=== PATIENT | male | born 1960 | race American Indian/Alaskan Native ===

== ENCOUNTER 2017-09-26 23:19 | Emergency (ER) | payer MEDICAID ==
[2017-09-27 00:11] VITALS: BP 134/74
[2017-09-27] MEDS ORDERED: NORCO 5/325 PO ONE (01:32)
[2017-09-27] MEDS ORDERED: NORCO 5/325 ONE (01:33)
--- NOTE | 2017-09-27 01:42 | XRay Report ---
FINAL REPORT EXAM: XR ANKLE 3+V LT HISTORY: left ankle injury COMPARISON: None available. FINDINGS: Three views of left ankle obtained. Trimalleolar fracture. Transverse fracture of the medial malleolus, oblique fracture of the distal fibula and oblique fracture through the distal and posterior margin of the tibia. There is medial subluxation of the distal tibia relative to the talus and lateral angulation at the distal fibular fracture site. IMPRESSION: Trimalleolar fracture with medial subluxation the distal tibia relative to the talus.
--- NOTE | 2017-09-27 03:03 | Emergency Department Report ---
HPI - General Chief Complaint: Extremity Injury, Lower Time Seen by Provider: 09/27/17 02:34 - HPI HPI: This is a 57-year-old male presents to ED complaining of left ankle and foot pain times today. Patient states. He was running and accidentally twisted his ankle. Patient denies falling, loss of consciousness or any injuries to the head. Patient states pain and swelling began shortly after the incident. ED Past Medical Hx - Past Medical History Hx Diabetes: Yes - Surgical History Past Surgical History?: No - Social History Smoking Status: Never Smoker Substance Use Type: None - Medications Home Medications: Home Medications Medication Instructions Recorded Confirmed Last Taken Type Cyclobenzaprine [Flexeril] 10 mg PO QHS PRN #24 tablet 09/27/17 Unknown Rx Ibuprofen [Motrin] 800 mg PO Q8HR PRN #30 tablet 09/27/17 Unknown Rx oxyCODONE /ACETAMINOPHEN [Percocet 1 tab PO Q6HR PRN #12 tablet 09/27/17 Unknown Rx 5/325] ED Review of Systems ROS: Stated complaint: ANKLE PAIN Other details as noted in HPI Constitutional: denies: chills, fever Eyes: denies: eye pain, eye discharge, vision change ENT: denies: ear pain, throat pain Respiratory: denies: cough, shortness of breath, wheezing Cardiovascular: denies: chest pain, palpitations Endocrine: no symptoms reported Gastrointestinal: denies: abdominal pain, nausea, diarrhea Genitourinary: denies: urgency, dysuria Musculoskeletal: denies: back pain, joint swelling, arthralgia Skin: denies: rash, lesions Neurological: denies: headache, weakness, paresthesias Psychiatric: denies: anxiety, depression Hematological/Lymphatic: denies: easy bleeding, easy bruising Physical Exam - Physical Exam Vital Signs: Vital Signs 09/27/17 09/27/17 00:05 00:52 Temperature 98.4 F 98.4 F Pulse Rate 84 84 Respiratory 18 Rate Blood Pressure 134/74 134/74 O2 Sat by Pulse 97 98 Oximetry Physical Exam: GENERAL: Alert and oriented x3, no apparent distress, Normal Gait, atraumatic. HEAD: Head is normocephalic and a-traumatic. NECK: Supple. Non edematous, No lymphadenopathy or thyromegaly. No C-spine tenderness, full range of motion LUNGS: Symetrical with respiration, No wheezing, no rales or crackles, CTAB. HEART: S1, S2 present, regular rate and rhythm without murmur, no rubs, no gallops. Non tender to palpation EXTREMITIES/MUSCULOSKELETAL: No cyanosis, clubbing, rash, lesions or edema. Full ROM bilaterally. pedal Pulses 2+ bilaterally. LE 5+ strength bilaterally , mild tissue swelling to the left ankle, tender to palpation. No loss of sensation. No lesions no abrasions or ecchymosis NEUROLOGIC: The patient is cooperative with no focal neurologic deficits. SKIN: Warm and dry, No lesions, No ulceration or induration present. ED Course Vital Signs 09/27/17 09/27/17 00:05 00:52 Temperature 98.4 F 98.4 F Pulse Rate 84 84 Respiratory 18 Rate Blood Pressure 134/74 134/74 O2 Sat by Pulse 97 98 Oximetry ED Medical Decision Making - Radiology Data Radiology results: report reviewed, image reviewed INAL REPORT EXAM: XR ANKLE 3+V LT HISTORY: left ankle injury COMPARISON: None available. FINDINGS: Three views of left ankle obtained. Trimalleolar fracture. Transverse fracture of the medial malleolus, oblique fracture of the distal fibula and oblique fracture through the distal and posterior margin of the tibia. There is medial subluxation of the distal tibia relative to the talus and lateral angulation at the distal fibular fracture site. IMPRESSION: Trimalleolar fracture with medial subluxation the distal tibia relative to the talus. Transcribed By: PRINCESS Dictated By: CARLA FIGUEROA MD Electronically Authenticated By: CARLA FIGUEROA MD Signed Date/Time: 09/27/17 0137 - Medical Decision Making Patient [id number] male presents with fracture of the tibial bone ED course: Patient receiv one tablet of [place] for pain in the ed. X-rays of the foot and ankle obtained, see report above Discussed x-ray findings with the patient. Patient was placed in a Black OCL splint and given crutches upon discharge I discussed with the patient to follow up with orthopedic doctor within 2-3 days Vital signs are stable patient is in no acute distress. Patient has no neuro deficits, breath sounds are sure she is given states will follow-up Critical care attestation.: If time is entered above; I have spent that time in minutes in the direct care of this critically ill patient, excluding procedure time. ED Disposition Clinical Impression: Ankle fracture Closed tibia fracture Qualifiers: Encounter type: initial encounter Fracture alignment: nondisplaced Disposition: TO HOME OR SELFCARE Is pt being admited?: No Does the pt Need Aspirin: No Condition: Stable Instructions: Ankle Fracture (ED), Leg Fracture (ED), RICE Therapy (ED) Additional Instructions: Make sure to follow up with the primary care physician as discussed. Take all your medications as you've been prescribed. If you have any worsening symptoms or develop new symptoms please return to ED immediately. Prescriptions: Cyclobenzaprine [Flexeril] 10 mg PO QHS PRN #24 tablet PRN Reason: Muscle Spasm Ibuprofen [Motrin] 800 mg PO Q8HR PRN #30 tablet PRN Reason: Pain oxyCODONE /ACETAMINOPHEN [Percocet 5/325] 1 tab PO Q6HR PRN #12 tablet PRN Reason: Pain Referrals: KELLY LEMON MD [Primary Care Provider] - 3-5 Days MINA NATHAN MD [Staff Physician] - 3-5 Days Forms: Work/School Release Form Time of Disposition: 04:02
[2017-09-27] MEDS ORDERED: FLEXERIL ONE (03:14)
[2017-09-27] MEDS ORDERED: TORADOL ONE (03:14)
[2017-09-27] MEDS ORDERED: FLEXERIL PO ONE (03:15)
[2017-09-27] MEDS ORDERED: TORADOL IM ONE (03:15)
== END 2017-09-27 04:35 | disposition home or self-care (01) ==
LOC: ED 23:19
DX: S82.292A Other fracture of shaft of left tibia, initial encounter for closed fracture (principal); E11.9 Type 2 diabetes mellitus without complications; W22.8XXA Striking against or struck by other objects, initial encounter; Y93.89 Activity, other specified; Y92.89 Other specified places as the place of occurrence of the external cause; Y99.8 Other external cause status
CPT/HCPCS: 29515; 73610; 96372; 99284; J1885

== ENCOUNTER 2017-10-03 00:09 | Emergency (ER) | payer MEDICAID ==
[2017-10-03 00:15] VITALS: BP 141/77
[2017-10-03] MEDS ORDERED: MOTRIN PO ONE (07:53)
--- NOTE | 2017-10-03 07:58 | Emergency Department Report ---
ED Lower Extremity HPI - General Chief Complaint: Extremity Injury, Lower Stated Complaint: LEFT ANKLE PAIN Time Seen by Provider: 10/03/17 07:05 Source: patient Mode of arrival: Wheelchair Limitations: Physical Limitation - History of Present Illness Initial Comments: This is a 57-year-old male nontoxic, well nourished in appearance, no acute signs of distress presents to the ED with c/o of left ankle pain. Patient stated that he was diagnosed with a ankle fracture on 09/27/2017 and received a splint and stated that splint has been itching him and burning so patient removed it today. Patient denies any numbness, tingling, decreased range of motion, fever, chills, nausea, vomiting, headache or stiff neck. She denies any chest pain or shortness of breath. Patient denies any new trauma. She stated that he follows Dr. Peck orthopedic doctor and stated that surgery scheduled. Patient denies any drug allergies. MD Complaint: ankle injury Injury: Ankle: Left Severity: mild Severity scale (0 -10): 8 Improves With: immobilization Worsens With: movement, palpation Associated Symptoms: swelling, unable to bear weight. denies: snap/pop sensation, numbness, tingling, able to partially bear weight, ambulatory - Related Data Home Medications Medication Instructions Recorded Confirmed Last Taken Aspirin [Lo-Dose Aspirin EC] 81 mg PO DAILY 10/02/17 10/02/17 Unknown Gabapentin [Neurontin] 300 mg PO QHS 10/02/17 10/02/17 Unknown HYDROcodone/APAP 5-325 [[place] 1 each PO Q6HR PRN 10/02/17 10/02/17 Unknown 5/325] Ibuprofen [Motrin] 800 mg PO Q8HR PRN 10/02/17 10/02/17 Unknown Insulin NPH/Regular [Novolin 70/30] 40 unit SUB-Q BID 10/02/17 10/02/17 Unknown Tamsulosin [Flomax] 0.4 mg PO QDAY 10/02/17 10/02/17 Unknown Previous Rx's Medication Instructions Recorded Last Taken Type Cyclobenzaprine [Flexeril] 10 mg PO QHS PRN #24 tablet 09/27/17 Unknown Rx oxyCODONE /ACETAMINOPHEN [Percocet 1 tab PO Q6HR PRN #12 tablet 09/27/17 Unknown Rx 5/325] Ibuprofen [Motrin] 600 mg PO Q8H PRN #30 tablet 10/03/17 Unknown Rx Allergies Allergy/AdvReac Type Severity Reaction Status Date / Time No Known Allergies Allergy Verified 09/27/17 01:48 ED Review of Systems ROS: Stated complaint: LEFT ANKLE PAIN Other details as noted in HPI Constitutional: denies: chills, fever Eyes: denies: eye pain, eye discharge, vision change ENT: denies: ear pain, throat pain Respiratory: denies: cough, shortness of breath, wheezing Cardiovascular: denies: chest pain, palpitations Endocrine: no symptoms reported Gastrointestinal: denies: abdominal pain, nausea, diarrhea Genitourinary: denies: urgency, dysuria Musculoskeletal: arthralgia. denies: back pain, joint swelling Skin: denies: rash, lesions Neurological: denies: headache, weakness, paresthesias Psychiatric: denies: anxiety, depression Hematological/Lymphatic: denies: easy bleeding, easy bruising ED Past Medical Hx - Past Medical History Previous Medical History?: Yes Hx Hypertension: Yes (OFF MEDS X 10 YRS) Hx Heart Attack/AMI: Yes (? SILENT [place] ( NO FOLLOW UP)) Hx Diabetes: Yes Hx HIV: No - Surgical History Past Surgical History?: No - Social History Smoking Status: Never Smoker Substance Use Type: None - Medications Home Medications: Home Medications Medication Instructions Recorded Confirmed Last Taken Type Cyclobenzaprine [Flexeril] 10 mg PO QHS PRN #24 tablet 09/27/17 10/02/17 Unknown Rx oxyCODONE /ACETAMINOPHEN [Percocet 1 tab PO Q6HR PRN #12 tablet 09/27/17 Unknown Rx 5/325] Aspirin [Lo-Dose Aspirin EC] 81 mg PO DAILY 10/02/17 10/02/17 Unknown History Gabapentin [Neurontin] 300 mg PO QHS 10/02/17 10/02/17 Unknown History HYDROcodone/APAP 5-325 [[place] 1 each PO Q6HR PRN 10/02/17 10/02/17 Unknown History 5/325] Ibuprofen [Motrin] 800 mg PO Q8HR PRN 10/02/17 10/02/17 Unknown History Insulin NPH/Regular [Novolin 70/30] 40 unit SUB-Q BID 10/02/17 10/02/17 Unknown History Tamsulosin [Flomax] 0.4 mg PO QDAY 10/02/17 10/02/17 Unknown History Ibuprofen [Motrin] 600 mg PO Q8H PRN #30 tablet 10/03/17 Unknown Rx ED Physical Exam - General Limitations: Physical Limitation General appearance: alert, in no apparent distress - Head Head exam: Present: atraumatic, normocephalic - Eye Eye exam: Present: normal appearance Pupils: Present: normal accommodation - ENT ENT exam: Present: normal exam, mucous membranes moist - Neck Neck exam: Present: normal inspection, full ROM. Absent: tenderness, meningismus - Respiratory Respiratory exam: Present: normal lung sounds bilaterally. Absent: respiratory distress - Cardiovascular Cardiovascular Exam: Present: regular rate, normal rhythm. Absent: systolic murmur, diastolic murmur, rubs, gallop - GI/Abdominal GI/Abdominal exam: Present: soft, normal bowel sounds - Rectal Rectal exam: Present: deferred - Extremities Exam Extremities exam: Present: normal inspection, full ROM, tenderness, normal capillary refill. Absent: pedal edema, joint swelling, calf tenderness - Expanded Lower Extremity Exam Left Hip exam: Present: normal inspection, full ROM Upper Leg exam: Present: normal inspection, full ROM Knee exam: Present: normal inspection, full ROM Lower Leg exam: Present: normal inspection, full ROM. Absent: tenderness, swelling, abrasion, laceration, ecchymosis, deformity, crepidus, dislocation, erythema, palpable cord, Nelson's sign Ankle exam: Present: normal inspection, full ROM, tenderness, swelling. Absent : abrasion, laceration, ecchymosis, deformity, crepidus, dislocation, erythema, anterior draw sign Foot/Toe exam: Present: normal inspection, full ROM Neuro vascular tendon exam: Present: no vascular compromise Gait: Positive: unable to bear weight - Back Exam Back exam: Present: normal inspection, full ROM - Neurological Exam Neurological exam: Present: alert, oriented X3, normal gait - Psychiatric Psychiatric exam: Present: normal affect, normal mood - Skin Skin exam: Present: warm, dry, intact, normal color. Absent: rash ED Course Vital Signs 10/03/17 00:14 Temperature 98.4 F Pulse Rate 80 Respiratory 16 Rate Blood Pressure 141/77 [Right] O2 Sat by Pulse 97 Oximetry - Reevaluation(s) Reevaluation #1: 10/03/17 07:56 Patient is speaking in full sentences with no signs of distress noted. Reevaluation #2: Post splint assessment: neurovasular intact; normal cap refill <2 second; normal sensation; denies decreaed sensation; normal ROM of digits. ED Lower Extremity MDM - Medical Decision Making This is a 57-year-old male that presents with trimalleolar fracture. Patient is stable and was examined by me. A OCL Long splint has been reapplied. Post splint assessment: neurovasular intact; normal cap refill <2 second; normal sensation; denies decreaed sensation; normal ROM of digits. No tenderness and no joint swelling. No ecchymosis. no joint redness or swelling. Not warm to touch. No signs of cellulites present. Patient was instructed to RICE therapy. Patient received Motrin for pain. Patient is discharged with Motrin. At time of discharge, the patient does not seem toxic or ill in appearance. No acute signs of distress noted. Patient agrees to discharge treatment plan of care. No further questions noted by the patient. Critical care attestation.: If time is entered above; I have spent that time in minutes in the direct care of this critically ill patient, excluding procedure time. ED Disposition Clinical Impression: Trimalleolar fracture of ankle, closed Qualifiers: Encounter type: initial encounter Laterality: left Qualified Code(s): S82.852A - Displaced trimalleolar fracture of left lower leg, initial encounter for closed fracture Disposition: DC-01 TO HOME OR SELFCARE Is pt being admited?: No Does the pt Need Aspirin: No Condition: Stable Instructions: Ankle Fracture (ED), Splint Care (ED) Additional Instructions: Follow-up with a orthopedic doctor in 3-5 days or if symptoms worsen and continue return to emergency room as soon as possible. Prescriptions: Ibuprofen [Motrin] 600 mg PO Q8H PRN #30 tablet PRN Reason: Pain Referrals: PRIMARY MD MERISSA [Primary Care Provider] - 3-5 Days MINA PECK MD [Staff Physician] - 3-5 Days [facility] [Outside] - 3-5 Days [facility] [Outside] - 3-5 Days
== END 2017-10-03 08:25 | disposition home or self-care (01) ==
LOC: ED 00:09
DX: S82.852A Displaced trimalleolar fracture of left lower leg, initial encounter for closed fracture (principal); I10 Essential (primary) hypertension; E11.9 Type 2 diabetes mellitus without complications; I25.2 Old myocardial infarction; X58.XXXA Exposure to other specified factors, initial encounter; Y93.89 Activity, other specified; Y92.89 Other specified places as the place of occurrence of the external cause; Y99.8 Other external cause status
CPT/HCPCS: 99282

== ENCOUNTER 2017-10-16 08:45 | Observation (INO) | payer MEDICAID ==
[~2017-10-16 08:45] MED LIST: ANCEF/STERILE WATER 2 GM/20 ML IV NR; VERSED IV NR
--- NOTE | 2017-10-16 09:33 | Anesthesia Consultation ---
Anesthesia Consult and Med Hx Date of service: 10/16/17 - Airway Anesthetic Teeth Evaluation: Good ROM Head & Neck: Adequate Mental/Hyoid Distance: Adequate Mallampati Class: Class II Intubation Access Assessment: Good - Pulmonary Exam CTA: Yes - Cardiac Exam Cardiac Exam: RRR - Pre-Operative Health Status ASA Pre-Surgery Classification: ASA3 Proposed Anesthetic Plan: General Nerve Block: Ank - Pre-Anesthesia Comment Pre-Anesthesia Comments: General with Ankle block - Pulmonary Hx Asthma: No Hx Respiratory Symptoms: No (Scores high for possible GERMAIN, snores) Hx Sleep Apnea: No (GERMAIN PRE SCREEN HIGH RISK) - Cardiovascular System Hx Hypertension: Yes (OFF MEDS X 10 YRS) Hx Heart Attack/AMI: Yes (? SILENT [place] ( NO FOLLOW UP)) Hx Angina: Yes (OCC. CHEST PAIN- TO SEE [facility], Has cardiac clearance on chart) - Central Nervous System Hx Neuromuscular Disorder: Yes (Numbness right hand, ) Hx Seizures: Yes (seizures as a child, none since childhood) - Gastrointestinal Hx Ulcer: No Hx Gastroesophageal Reflux Disease: No - Endocrine Hx Non-Insulin Dependent Diabetes: Yes (Last ate and took insulin October 15 at approx 8pm) - Other Systems Hx Cancer: No
[2017-10-16] MEDS ORDERED: DECADRON ONE (09:58)
[2017-10-16] MEDS ORDERED: NEURONTIN PO NR (10:00)
[2017-10-16] MEDS ORDERED: PEPCID PO NR (10:00)
[2017-10-16] MEDS: LACTATED RINGERS 1,000 ML IV SCH ×2 (10:00→16:10)
--- NOTE | 2017-10-16 10:14 | Anesthesia Day of Surgery ---
Anesthesia Day of Surgery - Day of Surgery Patient Examined: Yes Patient H&P Reviewed: Yes Patient is NPO: Yes Beta Blockers: No Cardiac Clearance: Yes Pulmonary Clearance: No Cale's Test: N/A
[2017-10-16] MEDS ORDERED: PEPCID IV ONE (10:44)
[2017-10-16] MEDS ORDERED: PEPCID IV NR (11:00)
[2017-10-16] MEDS ORDERED: NACL 0.9% IR ONE (12:30)
[2017-10-16] MEDS ORDERED: ZOFRAN IV PRN (13:38)
[2017-10-16] MEDS ORDERED: MORPHINE IV PRN (13:38)
[2017-10-16] MEDS: DILAUDID IV PRN ×2 (13:40→13:55)
[2017-10-16] MEDS ORDERED: ANCEF/NS 1 GM/50 ML 1 GM/50 ML BAG IV SCH (14:00)
[2017-10-16] MEDS ORDERED: SODIUM CHLORIDE FLUSH SYRINGE 10 ML IV SCH (14:00)
--- NOTE | 2017-10-16 15:23 | XRay Report ---
AP and lateral operative left ankle: Fractures. There is a metal plate overlying the distal fibula with good alignment of the bony structures. Parallel screws stabilize the medial malleolus which is in good alignment. The tibiotalar alignment is normal. Nonspecific mild swelling of the soft tissues and soft tissue disruption overlying the medial malleolus. Impression: ORIF with no apparent complication.
[2017-10-16] MEDS: MORPHINE IV PRN ×2 (16:27→22:36)
[2017-10-16] MEDS ORDERED: NEURONTIN PO SCH ×2 (18:00)
[2017-10-16] MEDS: FLOMAX PO SCH (18:21)
[2017-10-16] MEDS: ceFAZolin 1 GM in NACL 0.9% 20 ML IV SCH (20:03)
[2017-10-16] MEDS: NEURONTIN PO SCH (22:36)
[2017-10-17] MEDS: LACTATED RINGERS 1,000 ML IV SCH ×2 (02:00→11:36)
[2017-10-17] MEDS: NORCO 5/325 PO PRN (03:25)
[2017-10-17] MEDS: ceFAZolin 1 GM in NACL 0.9% 20 ML IV SCH (03:26)
[2017-10-17] MEDS: MORPHINE IV PRN ×3 (07:50→22:00)
[2017-10-17] MEDS: FLOMAX PO SCH (09:36)
[2017-10-17] MEDS ORDERED: Fluarix Quad 2017-2018(36 MOS+ IM ONE (12:00)
[2017-10-17] MEDS ORDERED: PNEUMOVAX 23 IM ONE (12:00)
--- NOTE | 2017-10-17 19:58 | Progress Note ---
Assessment and Plan s/p ORIF left ankle fracture doing ok continue PT and observation Subjective Date of service: 10/17/17 Interval history: c/o numbness left foot, had femoral nerve block pre op for post op pain management.... Objective Vital signs: Vital Signs - 12hr 10/17/17 10/17/17 10:00 16:50 Temperature 99.8 F H Pulse Rate 81 Respiratory 18 Rate Blood Pressure 151/72 O2 Sat by Pulse 96 95 Oximetry Narrative Exam: left leg - post op dressing intact, skin warm to touch, good capillary refill - Labs Labs: Abnormal lab results 10/16/17 10/17/17 10/17/17 Range/Units 21:28 05:45 11:36 POC Glucose 274 H 187 H 160 H (70-105)
[2017-10-17] MEDS: NEURONTIN PO SCH (22:00)
[2017-10-18] MEDS: MORPHINE IV PRN ×3 (03:13→13:04)
[2017-10-18] MEDS: NORCO 5/325 PO PRN ×4 (04:22→22:02)
[2017-10-18] MEDS: LACTATED RINGERS 1,000 ML IV SCH (04:28)
[2017-10-18] MEDS: FLOMAX PO SCH ×2 (08:56→12:57)
[2017-10-18] MEDS: NEURONTIN PO SCH (22:02)
[2017-10-19] MEDS: LACTATED RINGERS 1,000 ML IV SCH (00:10)
[2017-10-19] MEDS: NORCO 5/325 PO PRN ×2 (06:54→13:02)
[2017-10-19 08:03] VITALS: BP 139/66
[2017-10-19] MEDS: FLOMAX PO SCH (10:04)
[2017-10-19] MEDS: MORPHINE IV PRN (10:04)
--- NOTE | 2017-10-19 11:02 | Discharge Summary ---
Providers - Providers Date of Admission: 10/16/17 13:15 Date of discharge: 10/19/17 Attending physician: MINA PECK MD 10/16/17 13:19 Physical Therapy Evaluation and Treat [CONS] Routine Comment: Reason For Exam: post op evaluation Weight bearing status?: Partial wt bearing Assistive devices?: Yes If so list: Walker 10/17/17 19:38 Consult to Case Management [CONS] Urgent Services Needed at Discharge: Home Health Services Physical Therapy Notified:: case management Was contact made?: No Additional Physician Instructions: the patient is homeless and need placement upon discharge Primary care physician: LEGAL MANAGER Hospitalization Reason for admission: Left ankle fracture Pertinent studies: Left ankle x-ray bimalleolar ankle fracture Hospital course: Patient is Dr Merritt's patient and I was asked by Dr Peck to discharge this patient. He took care of his medicine. 57-year-old -[place] man was admitted for bimalleolar left ankle fracture and Dr Flores did ORIF. Patient is currently stable. Patient said he need only pain medicine and that was written by Dr Peck and placed in the chart. patient is complaining of left ankle numbness but circulation is intact and will be followed by PCP for diabetic neuropathy. Disposition: DC-01 TO HOME OR SELFCARE Time spent for discharge: 32 - Discharge Diagnoses (1) Closed left ankle fracture Status: Acute Core Measure Documentation - Palliative Care Palliative Care/ Comfort Measures: Not Applicable - Core Measures Any of the following diagnoses?: none Exam - Physical Exam Narrative exam: Not in cardiopulmonary distress. The patient is obese. Vital signs as documented. Head exam is unremarkable. No scleral icterus . Neck is without jugular venous distension, thyromegaly, or carotid bruits. Lungs are clear to auscultation. Cardiac exam reveals regular rate and Rhythm. First and second heart sounds normal. No murmurs, rubs or gallops. Abdominal exam reveals normal bowel sounds, no masses, no organomegaly and no aortic enlargement. Extremities clean dressing on the left ankle. INFORMATION RESOURCES MANAGER: Alert and oriented 3. No focal weakness. - Constitutional Vitals: Temp Pulse Resp BP Pulse Ox 98.4 F 75 18 139/66 97 10/19/17 07:40 10/19/17 07:40 10/19/17 07:40 10/19/17 07:40 10/19/17 07:40 Plan Activity: advance as tolerated Weight Bearing Status: Weight Bear as Tolerated Diet: diabetic Follow up with: PRIMARY CARE, [Primary Care Provider] - 7 Days Prescriptions: Oxycodone HCl [oxyCODONE TAB] 10 mg PO Q6H PRN #40 tablet PRN Reason: Pain
== END 2017-10-19 15:40 | disposition home or self-care (01) ==
LOC: OR 08:45 → 3A 13:15
PROVIDERS: ADMIT Orthopaedic Surgery; ATTEND Orthopaedic Surgery
DX: S82.842A Displaced bimalleolar fracture of left lower leg, initial encounter for closed fracture (principal); X58.XXXA Exposure to other specified factors, initial encounter; Y92.89 Other specified places as the place of occurrence of the external cause; Y93.89 Activity, other specified; Y99.8 Other external cause status
CPT/HCPCS: 27814; 64450; 73600; 82962; 90686; 90732; 96372; 96374; 96375; 96376; 97116; 97161; 97530; C1713; C1769; G0008; G0009; G0378; J0690; J1100; J1170; J2250; J2270; J7120; 90471; J1815

== ENCOUNTER 2017-12-20 11:49 | Outpatient (CLI) | payer MEDICAID ==
--- NOTE | 2017-12-20 14:39 | XRay Report ---
Left ankle: Ankle fractures. 3 views of the left ankle are included. Stabilizing plate has been placed over the distal fibula with 4 transverse screws in good positions. There is good alignment of the fracture. 2 screws are placed through the fractured medial malleolus. There is slight medial positioning of the malleolus. The tibiotalar alignment appears intact. There is no fixation or positional change of the posterior malleolus fracture. Generalized swelling of the tissues. Impression: ORIF left ankle.
== END 2017-12-20 11:50 | disposition home or self-care (01) ==
LOC: XRAY 11:49
PROVIDERS: ATTEND Orthopaedic Surgery
DX: S82.892D Other fracture of left lower leg, subsequent encounter for closed fracture with routine healing (principal); I10 Essential (primary) hypertension; E78.00 Pure hypercholesterolemia, unspecified; F32.9 Major depressive disorder, single episode, unspecified